=== PATIENT | male | born 1965 | race Caucasian/White ===

== ENCOUNTER 2024-09-01 08:49 | Emergency (ER) | payer OTHER, SELFPAY ==
[2024-09-01 09:03] VITALS: BP 141/67
--- NOTE | 2024-09-01 11:26 | ED.SKININJ ---
HPI-Injury
General
Chief Complaint: Eye Problems
Source: patient
Exam Limitations: none
Time Seen by Provider: 09/01/24 11:06
Nursing documentation reviewed up to this point in time: agreed with
History of Present Illness-Injury
Initial Injury comments:
59-year-old male with no significant past medical history states he was fixing something above his head yesterday at home when something fell into his left eye. The eye has been irritated since and he can see a tiny black dot. He denies change in
vision. He states his eye is irritated but not painful.
Past History
Past History
ED Past Medical History: None
ED Past Surgical History: Appendectomy
Social History
Tobacco: Non-smoker
Alcohol: None
Personal: Single
Living: alone
Employment: Employed (automotive)
Review of Systems
Review of Systems
Allergies reviewed?: Yes
All Other Systems: ROS reviewed and negative except as documented in HPI and ROS
Constitutional: Reports fever
EENT: Reports other (irritation and FB left eye)
Phy Exam
Physical Exam
Physical Exam:
PHYSICAL EXAMINATION:
General: no apparent distress, not acutely ill
Neuro: alert and oriented.
Eye: L eye with tiny black dot 3 o'clock over iris. Lid lifted, no FB noted. Eye is without redness or tenderness.
Psychiatric: well kept. interactive and cooperative
Musculoskeletal: Moves with ease
Skin: Warm, pink.
Course
Orders/Labs/Results
Orders:
Orders
09/01/24 11:20
Tetracaine HCl [Tetracaine 0.5% Ophthalmic Solution] 1 drop .ROUTE .STK-MED ONE
09/01/24 11:21
Purified Water Eye Wash [Dacriose Eye Wash Solution] 120 ml .ROUTE .STK-MED ONE
09/01/24 11:28
Fluorescein Sodium [Ful-Martha] 1 mg .ROUTE .STK-MED ONE
09/01/24 11:51
Visual Acuity- Treatment ONCE
Vital Signs
Initial and Last Documented VS:
Initial Vital Signs
Temp Pulse Resp BP Pulse Ox
98.3 F 55 16 141/67 98
09/01/24 09:03 09/01/24 09:03 09/01/24 09:03 09/01/24 09:03 09/01/24 09:03
Last Documented Vital Signs
Temp Pulse Resp BP Pulse Ox
98.3 F 55 16 141/67 98
09/01/24 09:03 09/01/24 09:03 09/01/24 09:03 09/01/24 09:03 09/01/24 09:03
Procedures
Foreign Body Removal-Skin
Wound explored and foreign body removed?: Yes
Anesthesia: other (Tetracaine)
MDM/Problems Addressed
MDM/Problems Addressed:
59-year-old male with no significant past medical history states he was fixing something above his head yesterday at home when something fell into his left eye. The eye has been irritated since and he can see a tiny black dot. He denies change in
vision. He states his eye is irritated but not painful.
12:00 p.m.
Topical anesthetic to L eye 10 minutes ago
Pt refused visual acuity, during explanation of why it is important pt jumps up off stretcher and states 'just get this out of my eye, that's all I want, I don't need a vision test.'
I told him the importance of visual acuity prior to any procedures to be sure his vision isn't impaired by the procedure.
He states 'if my vision changes, you'll just deny it anyway...'
He continued to rant about how he's been here over 4 hours and his two weeks ago, he has PTSD and 'just get the f---ing thing out of my eye.'
I expressed my condolences about his
He then got up and walked out.'
*Critical Care Note
Total Time (30-74mins, 75-104mins- exclusive of procedures): Not Applicable
ED Attending Note
-
Portions of this chart may have been created with voice recognition software.� Occasional wrong word or��sound alike� substitutions may have occurred due to the inherent limitations of voice recognition software.
Discharge Plan
Departure
Patient Disposition: Against Medical Advice
Date of Disposition: 09/01/24
Time of Disposition: 12:05
Condition: Good
Discharge Problem:
Foreign body of left eye
Referrals:
UNKNOWN - PT DOES,NOT KNOW [Family Provider] -
Interventions
Interventions:
*Risk Screen - Suicide Last Done: 09/01/24 09:03
*General Assessment Last Done: 09/01/24 11:07
*Neglect/Abuse Screening Last Done: 09/01/24 09:03
*ED- Fall Risk Assessment Last Done: 09/01/24 11:07
*ED COVID-19 Vaccine History Last Done: 09/01/24 11:07
*Nursing Disposition Last Done: 09/01/24 12:08
Discharge Date and Time
Discharge Date/Time: 09/01/24 12:09
Print Language: EMIRATI
== END 2024-09-01 12:09 | disposition left against medical advice (07) ==
LOC: EMR 08:49
PROVIDERS: EMERGENCY PHYSICIAN Emergency Medicine
DX: T15.92XA Foreign body on external eye, part unspecified, left eye, initial encounter (principal); W44.9XXA Unspecified foreign body entering into or through a natural orifice, initial encounter; Z53.29 Procedure and treatment not carried out because of patient's decision for other reasons
CPT/HCPCS: 99282